=== PATIENT | male | born 1990 | race Hispanic/Latino ===

== ENCOUNTER 2020-10-18 13:04 | Emergency (ER) | payer OTHER, SELFPAY ==
--- NOTE | 2020-10-18 15:33 | ER ---
Nurse's Notes [facility] Name: Marlon Willett III Age: 30 yrs Sex: Male : 1990 Arrival Date: 10/18/2020 Time: 13:12 Bed 21 Private MD: Diagnosis: Streptococcal pharyngitis Presentation: 10/18 13:27 Chief complaint: Patient states: sore throat, cough and congestion x 2 - 3 days. Denies ca1 fever. Coronavirus screen: Client denies travel out of the [place] in the last 14 days. congestion, cough unrelated to allergies, shortness of breath, Client presents with at least one sign or symptom that may indicate coronavirus-19. Standard/surgical mask placed on the client. Provider contacted for isolation considerations. Ebola Screen: Patient negative for fever greater than or equal to 101.5 degrees Fahrenheit, and additional compatible Ebola Virus Disease symptoms Patient denies exposure to infectious person. Patient denies travel to an Ebola-affected area in the 21 days before illness onset. No symptoms or risks identified at this time. Initial Sepsis Screen: Does the patient meet any 2 criteria? No. Patient's initial sepsis screen is negative. Does the patient have a suspected source of infection? No. Patient's initial sepsis screen is negative. Risk Assessment: Do you want to hurt yourself or someone else? Patient reports no desire to harm self or others. Onset of symptoms was October 18, 2020. 13:27 Method Of Arrival: Ambulatory ca1 13:27 Acuity: JENNIE 4 ca1 Triage Assessment: 13:28 General: Appears in no apparent distress. comfortable, Behavior is calm, cooperative, ca1 appropriate for age. Pain: Complains of pain in throat Pain currently is 1 out of 10 on a pain scale. Pain began 2-3 days ago. EENT: Throat is reddened has enlarged tonsils bilaterally Reports nasal congestion nasal discharge. Respiratory: Reports cough that is Airway is patent Respiratory effort is even, unlabored, Respiratory pattern is regular, symmetrical, Breath sounds are clear bilaterally. Derm: Skin is intact, is healthy with good turgor, Skin is pink, warm \T\ dry. Musculoskeletal: Circulation, motion, and sensation intact. Capillary refill < 3 seconds. Historical: - Allergies: 13:28 No Known Allergies; ca1 - Home Meds: 13:28 None [Active]; ca1 - PMHx: 13:28 None; ca1 - PSHx: 13:28 None; ca1 - Immunization history:: Client reports having NOT received the Covid vaccine. Flu vaccine is up to date. - Social history:: Smoking status: Patient reports the use of cigarette tobacco products, smokes one-half pack cigarettes per day. Screenin:24 Abuse screen: Denies threats or abuse. Denies injuries from another. Nutritional ca1 screening: No deficits noted. Tuberculosis screening: No symptoms or risk factors identified. Fall Risk None identified. Assessment: 15:24 Reassessment: Patient appears in no apparent distress at this time. see triage notes. ca1 Respiratory: Airway is patent Respiratory effort is even, unlabored, Respiratory pattern is regular, symmetrical. 15:46 Respiratory: Breath sounds are clear. ca1 Vital Signs: 13:27 BP 122 / 92; Pulse 75; Resp 18 S; Temp 98.1(TE); Pulse Ox 96% on R/A; Weight 90.72 kg ca1 (R); Height 5 ft. 6 in. (167.64 cm) (R); Pain 1/10; 15:46 BP 119 / 86; Pulse 76; Resp 15 S; Pulse Ox 98% on R/A; ca1 13:27 Body Mass Index 32.28 (90.72 kg, 167.64 cm) ca1 ED Course: 13:12 Patient arrived in ED. am2 13:28 Triage completed. ca1 13:28 Arm band placed on right wrist. ca1 13:33 Flu Sent. ca1 13:33 Strep Sent. ca1 15:11 George Suarez PA is PHCP. cp 15:11 Blair Daniels MD is Attending Physician. cp 15:21 Sydney Joseph, JODI is Primary Nurse. ca1 15:24 No provider procedures requiring assistance completed. Patient did not have IV access ca1 during this emergency room visit. 15:46 Patient has correct armband on for positive identification. Bed in low position. ca1 Administered Medications: No medications were administered Outcome: 15:32 Discharge ordered by . cp 15:47 Discharged to home ambulatory. ca1 15:47 Condition: stable 15:47 Discharge instructions given to patient, Instructed on discharge instructions, follow up and referral plans. medication usage, Demonstrated understanding of instructions, follow-up care, medications, Prescriptions given X 2. 15:47 Patient left the ED. ca1 Signatures: George Suarez PA PA cp Moreno, Amanda am2 Sydney Joseph RN RN ca1 Corrections: (The following items were deleted from the chart) 14:12 13:33 CORONAVIRUS+ drawn and sent. ca1 EDMS
--- NOTE | 2020-10-18 15:33 | EDPHYS ---
Physician Documentation [facility] Name: Marlon Willett III Age: 30 yrs Sex: Male : 1990 Arrival Date: 10/18/2020 Time: 13:12 Bed 21 Private MD: ED Physician Blair Daniels HPI: 10/18 15:27 This 30 yrs old Male presents to ER via Ambulatory with complaints of Sore cp Throat, Chest Congestion. 15:27 The patient presents with sore throat. Onset: The symptoms/episode began/occurred 2 cp day(s) ago. Severity of symptoms: in the emergency department the symptoms are unchanged, despite home interventions. Associated signs and symptoms: Pertinent positives: rhinorrhea, slight cough, Pertinent negatives diarrhea, fever, vomiting. Patient reports he is currently taking unknown antibiotic given to him by Aunt. Historical: - Allergies: 13:28 No Known Allergies; ca1 - Home Meds: 13:28 None [Active]; ca1 - PMHx: 13:28 None; ca1 - PSHx: 13:28 None; ca1 - Immunization history:: Client reports having NOT received the Covid vaccine. Flu vaccine is up to date. - Social history:: Smoking status: Patient reports the use of cigarette tobacco products, smokes one-half pack cigarettes per day. ROS: 15:28 Eyes: Negative for injury, pain, redness, and discharge. cp 15:28 Constitutional: Negative for body aches, chills, fever, poor PO intake. 15:28 ENT: Positive for rhinorrhea, sore throat, Negative for drainage from ear(s), ear pain, difficulty swallowing, difficulty handling secretions. 15:28 Respiratory: Positive for cough, Negative for shortness of breath, wheezing. 15:28 Abdomen/GI: Negative for abdominal pain, nausea, vomiting, and diarrhea. 15:28 Skin: Negative for rash. 15:28 Neuro: Negative for altered mental status, headache. 15:28 All other systems are negative. Exam: 15:29 Head/Face: Normocephalic, atraumatic. cp 15:29 Constitutional: The patient appears in no acute distress, alert, awake, non-toxic, well developed, well nourished. 15:29 Eyes: Periorbital structures: appear normal, Conjunctiva: normal, no exudate, no injection, Sclera: no appreciated abnormality, Lids and lashes: appear normal, bilaterally. 15:29 ENT: External ear(s): are unremarkable, Ear canal(s): are normal, clear, TM's: dullness, bilaterally, Nose: is normal, Mouth: Lips: moist, Oral mucosa: moist, Posterior pharynx: Airway: no evidence of obstruction, patent, Tonsils: bilaterally enlarged, with erythema, no exudate, Uvula: midline, erythema, that is mild, exudate, is not appreciated, Voice: is normal. 15:29 Neck: ROM/movement: is normal, is supple, no meningismus, no nuchal rigidity, Lymph nodes: no appreciated lymphadenopathy. 15:29 Chest/axilla: Inspection: normal. 15:29 Cardiovascular: Rate: normal, Rhythm: regular. 15:29 Respiratory: the patient does not display signs of respiratory distress, Respirations: normal, no use of accessory muscles, no retractions, labored breathing, is not present, Breath sounds: are clear throughout, no decreased breath sounds, no stridor, no wheezing. Vital Signs: 13:27 BP 122 / 92; Pulse 75; Resp 18 S; Temp 98.1(TE); Pulse Ox 96% on R/A; Weight 90.72 kg ca1 (R); Height 5 ft. 6 in. (167.64 cm) (R); Pain 1/10; 15:46 BP 119 / 86; Pulse 76; Resp 15 S; Pulse Ox 98% on R/A; ca1 13:27 Body Mass Index 32.28 (90.72 kg, 167.64 cm) ca1 MDM: 15:30 Differential diagnosis: teresa-aguirre virus, group A strep tonsillitis, influenza, cp laryngitis, peritonsillar abscess pharyngitis, retropharyngeal abcess. Data reviewed: vital signs, nurses notes, lab test result(s), and as a result, I will discharge patient. Counseling: I had a detailed discussion with the patient and/or guardian regarding: the historical points, exam findings, and any diagnostic results supporting the discharge/admit diagnosis, lab results. 15:32 Patient medically screened. 10/18 13:30 Order name: Flu; Complete Time: 15:46 ca1 10/18 15:46 Interpretation: Reviewed. 10/18 13:30 Order name: Strep; Complete Time: 15:46 ca1 10/18 15:46 Interpretation: Abnormal: GP A STREP SC GROUP A STREP SCREEN-- POSITIVE. cp 10/18 15:04 Order name: SARS-COV-2 RT PCR; Complete Time: 15:46 EDMS 10/18 15:47 Interpretation: Results reviewed. cp Administered Medications: No medications were administered Disposition: 18:33 Co-signature as Attending Physician, Blair Daniels MD I agree with the assessment and kdr plan of care. Disposition Summary: 10/18/20 15:32 Discharge Ordered Location: Home cp Problem: new cp Symptoms: have improved cp Condition: Stable cp Diagnosis - Streptococcal pharyngitis cp Followup: cp - With: Private Physician - When: 2 - 3 days - Reason: Worsening of condition Discharge Instructions: - Discharge Summary Sheet cp - Strep Throat, Adult cp Forms: - Medication Reconciliation Form cp - Thank You Letter cp - Antibiotic Education cp - Prescription Opioid Use cp - Work release form mt Prescriptions: - Amoxicillin 875 mg Oral Tablet - take 1 tablet by ORAL route every 12 hours for 10 days; 20 tablet; Refills: 0, cp Product Selection Permitted - Tessalon Perles 100 mg Oral Capsule - take 2 capsule by ORAL route every 8 hours As needed; 20 capsule; Refills: 0, cp Product Selection Permitted Signatures: Dispatcher [employer] Blair Padron MD MD kdr George Suarez PA PA cp Sydney Joseph RN RN ca1 Corrections: (The following items were deleted from the chart) 14:12 13:30 CORONAVIRUS+MR.LAB.BRZ ordered. EDNY EDMS
[2020-10-18 16:20] VITALS: TEMP 98.1
[2020-10-18 16:26] VITALS: BP 119/86; O2SAT 98
== END 2020-10-18 15:47 | disposition home or self-care (01) ==
LOC: ER 13:04
DX: J02.0 Streptococcal pharyngitis (principal); F17.210 Nicotine dependence, cigarettes, uncomplicated; Z20.822 Contact with and (suspected) exposure to COVID-19
CPT/HCPCS: 87081; 87804; 99283; U0003